=== PATIENT | male | born 1990 | race Two or more races ===

== ENCOUNTER 2024-10-03 15:16 | Emergency (ER) | payer OTHER ==
[~2024-10-03] VITALS: Ht 182.9 cm; Wt 108.9 kg
[2024-10-03] MEDS ORDERED: FAMOTIDINE/PF 20 MG in 0.9 % SODIUM CHLORIDE 8 ML IV PUSH STA (16:39)
[2024-10-03] MEDS ORDERED: 0.9 % SODIUM CHLORIDE 1,000 ML IV ONE (16:45)
[2024-10-03] MEDS ORDERED: METRONIDAZOLE/SODIUM CHLORIDE 500 MG/100 ML PIGGYBACK IV ONE ×2 (16:45→16:57)
[2024-10-03] MEDS ORDERED: DIPHENOXYLATE HCL/ATROPINE 1 UDTAB TABLET PO ONE (16:45)
[2024-10-03] MEDS ORDERED: ONDANSETRON HCL 2 MG/ML VIAL IV ONE (16:45)
[2024-10-03] MEDS ORDERED: ONDANSETRON HCL 2 MG/ML VIAL ONE (16:56)
[2024-10-03] MEDS ORDERED: FAMOTIDINE/PF 20 MG/2 ML VIAL ONE (16:57)
[2024-10-03 17:26] LABS: BASO % 0.4 % (0.1-1.2); EOS # 0.04 (0.04-0.54); EOS % 0.2 % (0.7-7.0); HEMATOCRIT 52.5 % (40.1-51.0); LYMPH # 0.83 (1.18-3.74); LYMPH % 3.6 % (19.3-53.1); MEAN CORPUSCULAR HEMOGLOBIN 22.2 pg (25.6-32.2); MONO # 1.51 (0.24-0.82); MONO % 6.5 % (4.7-12.5); NEUT # 20.71 (1.56-6.13); NEUT % 88.4 % (34.0-71.1); RED CELL DISTRIBUTION WIDTH 18.1 % (11.6-14.4)
[2024-10-03 17:27] LABS: RED BLOOD COUNT 7.67 M/uL (4.63-6.08)
[2024-10-03 17:28] LABS: PLATELET COUNT 392 K/uL (163-369)
[2024-10-03 18:44] LABS: ALBUMIN 4.4 gm/dL (3.4-5.0); BILIRUBIN TOTAL 0.65 mg/dL (0.3-1.2); CALCIUM 9.2 mg/dL (8.5-10.1); CREATININE SERUM 1.77 mg/dL (0.70-1.30); GFR 44.26; POTASSIUM 5.02 mEq/L (3.5-5.1); TOTAL PROTEIN 8.4 gm/dL (6.4-8.2)
[2024-10-03] MEDS ORDERED: PEPCID AC20 MG PO (21:50)
[2024-10-03] MEDS ORDERED: ZOFRAN8 MG PO (21:50)
== END 2024-10-03 22:25 | disposition home or self-care (01) ==
LOC: EDBD 15:16 → EDSEX 15:16 → ER 15:16
PROVIDERS: General Practice
DX: K52.89 Other specified noninfective gastroenteritis and colitis (principal); R11.2 Nausea with vomiting, unspecified